=== PATIENT | female | born 1955 | race Caucasian/White ===

== ENCOUNTER 2016-06-23 07:23 | Outpatient (CLI) | payer MEDICAID ==
[~2016-06-23] VITALS: Ht 165.1 cm; Wt 95.5 kg
--- NOTE | ~2016-06-23 | HEMODYNAMI ---
PATIENT:NATHEN SERNA MEDICAL RECORD: [id number] : 57 LOCATION:[facility] ADMISSION DATE: 06/23/16 Generatedon:06/23/20169:05 Patient name: NATHEN SERNA Patient #: [id number] SSN: : 1955 Date of study: 06/23/2016 Page: Of Hemodynamic Procedure Report Patient Data Patient Demographics Procedure consent was obtained First Name: NATHEN Gender: Female Last Name: DAPHNE : 1955 Patient #: [id number] Age: 60 year(s) Race: Additional ID: [id number] Contact details [address]: [address] [place] [address] State: [place] City: [place] Zip code: [address] Past Medical History Allergies Allergen Reaction Date Comments Reported Other allergy 06/23/2016 BENADRYL Admission Admission Data Admission Date: 06/23/2016 Admission Time: 7:23 Height (in.): 65 BSA: 2.02 (m2) Height (cm.): 165.1 BMI: 34.95 (kg/m2) Weight (lbs.): 210 Weight (kg.): 95.25 Current Diagnosis Diagnosis Description Stable angina Lab Results Lab Result Date: 06/23/2016 Lab Result Time: 0:00 Biochemistry Name Units Result Min Max BUN mg/dl 13 --(--*-)-- 7 18 Creatinine mg/dl 0.8 --(-*--)-- 0.6 1.3 CBC Name Units Result Min Max Hemoglobin g/dl 12.4 *-(----)-- 13.5 17.5 Procedure Procedure Types Cath Procedure Diagnostic Procedure C LHC w/Coronaries Miscellaneous Procedures Moderate Sedation up to 15 minutes Procedure Description Procedure Date Procedure Date: 06/23/2016 Procedure Start Time: 8:58 Procedure End Time: 9:02 Procedure Staff Name Function Abebe Cagle MD Performing Physician Maco Davis RT Scrub April Berrios RN Nurse Sterling Quispe RT Monitor Procedure Data Cath Procedure Fluoroscopy Diagnostic fluoroscopy Total fluoroscopy Time: 0.5 time: 0.5 min min Diagnostic fluoroscopy Total fluoroscopy dose: 276 dose: 276 mGy mGy Contrast Material Contrast Material Type Amount (ml) Isovue 300 59 Entry Location Entry Primary Successful Side Size Upsize Upsize Entry Closure Bunn ccessful Closure Location (Fr) 1 (Fr) 2 (Fr) Remarks Device Remarks Radial Right 6 Fr Mechanical artery Short Compression Diagnostic catheters Device Type Used For End Catheter Placement Terumo 5Fr Dawn 110cm LV Angiography catheter Procedure Complications No complications Procedure Medications Medication Administration Route Dosage Oxygen NC 2 l/min Heparin Flush Bag added to field 2 bags (1000units/500ml NS) Lidocaine 2% added to field 20 Radial Cocktail added to field 1 syringe (Verapomil 2mg/Nitro 400mcg/Heparin 1500units) Versed I.V. 1 mg Fentanyl I.V. 50 mcg Versed I.V. 1 mg Fentanyl I.V. 50 mcg Radial Cocktail I.A. 1 syringe (Verapomil 2mg/Nitro 400mcg/Heparin 1500units) Versed I.V. 1 mg Fentanyl I.V. 50 mcg Versed I.V. 1 mg Fentanyl I.V. 50 mcg Hemodynamics Rest BSA: 2.02 (m2) HGB: 12.4 (g/dl) O2 Consumption: Estimated: 193.81 (ml/min) O2 Co nsumption indexed: Estimated:95.95 (ml/min/m) Heart Rate: 72 (bpm) Snapshots Pre Cath Intra NCS Post Cath Vital Signs Time Heart Resp SPO2 NIBP (mmHg) Rhythm Pain Sedation Rate (ipm) (%) Status Level (bpm) 8:31:26 78 16 98 153/80(123) NSR 0 (11) 10(A) , No pain 8:35:45 74 16 97 134/83(110) NSR 0 (11) 10(A) , No pain 8:40:01 71 22 97 136/86(105) NSR 0 (11) 10(A) , No pain 8:44:12 80 15 97 138/82(117) NSR 0 (11) 10(A) , No pain 8:48:28 79 16 97 113/76(103) NSR 0 (11) 10(A) , No pain 8:53:11 74 16 97 139/78(107) NSR 0 (11) 10(A) , No pain 8:57:23 78 14 96 126/79(104) NSR 0 (11) 10(A) , No pain 9:01:43 82 16 95 122/68(88) NSR 0 (11) 10(A) , No pain 9:04:11 86 16 95 119/72(96) NSR 0 (11) 10(A) , No pain Medications Time Medication Route Dose Verified Delivered Reason Notes E ffectiveness by by 8:30:23 Oxygen NC 2 l/min Abebe April Per Tsering Berrios RN physician 8:30:31 Heparin Flush added 2 bags Abebe Lomas used for Bag to Tsering Cagle MD procedure (1000units/500ml field NS) 8:30:38 Lidocaine 2% added 20ml Abebe Abebe used for to vial Tsering Cagle MD procedure field 8:30:44 Radial Cocktail added 1 Abebe Abebe used for (Verapomil to syringe Tsering Cagle MD procedure 2mg/Nitro field 400mcg/Heparin 1500units) 8:55:00 Versed I.V. 1 mg Abebe April for sedation Tsering Berrios RN 8:55:05 Fentanyl I.V. 50 mcg Abebe April for sedation Tsering Berrios RN 8:57:15 Versed I.V. 1 mg Abebe April for sedation Tsering Berrios RN 8:57:19 Fentanyl I.V. 50 mcg Abebe April for sedation Tsering Berrios RN 8:58:44 Radial Cocktail I.A. 1 Abebe Abebe for (Verapomil syringe Tsering Cagle MD vasodilation 2mg/Nitro 400mcg/Heparin 1500units) 8:59:01 Versed I.V. 1 mg Abebe April for sedation Tsering Berrios RN 8:59:08 Fentanyl I.V. 50 mcg Abebe April for sedation Tsering Berrios RN 9:01:01 Versed I.V. 1 mg Abebe April for sedation Tsering Berrios RN 9:01:05 Fentanyl I.V. 50 mcg Abebe April for sedation Tsering Berrios RN Procedure Log Time Note 8:22:10 ACC Patient presents with Stable Angina CCS Anginal Class 2--Slight limitation of ordinary activity. 8:22:13 Diagnostic Cath status Elective 8:22:57 April Berrios RN sent for patient. Start room use. 8:23:25 Time tracking: Regular hours 8:23:29 Plan of Care:Hemodynamics will remain stable., Cardiac rhythm will remain stable., Comfort level will be maintained., Respiratory function will remain adequate., Patient/ family verbilizes understanding of procedure., Procedure tolerated without complication., Recovers from procedure without complications.. 8:23:47 Patient received from Pre/Post Procedure Room to [facility] 2 Alert and oriented. Tansferred to table in Supine position. 8:23:48 Warm blankets applied, and yanique hugger turned on for patient comfort. 8:23:48 Correct patient and procedure confirmed by team. 8:23:49 Signed procedure consent form obtained from patient. 8:23:50 ECG and BP/O2 sat monitors applied to patient. 8:30:14 Vital chart was started 8:30:23 Oxygen 2 l/min NC was administered by April Berrios RN; Per physician; 8:30:31 Heparin Flush Bag (1000units/500ml NS) 2 bags added to field was administered by Abebe Cagle MD; used for procedure; 8:30:38 Lidocaine 2% 20ml vial added to field was administered by Abebe Cagle MD; used for procedure; 8:30:44 Radial Cocktail (Verapomil 2mg/Nitro 400mcg/Heparin 1500units) 1 syringe added to field was administered by Abebe Cagle MD; used for procedure; 8:42:05 Baseline sample Acquired. 8:42:08 Rhythm: sinus rhythm 8:42:09 Full Disclosure recording started 8:45:03 H&P Date Dictated: 06/15/2016 Within 30 days and on chart., H&P Addendum completed by physician on day of procedure. (MUST COMPLETE FOR ALL OUTPATIENTS). 8:45:04 Pre-procedure instructions explained to patient. 8:45:04 Pre-op teaching completed and patient verbalized understanding. 8:45:06 Family in waiting room. 8:45:39 Patient NPO since Midnight. 8:46:00 Patient allergic to Other allergyBENADRYL 8:46:02 Is the patient allergic to Iodine/contrast media? No. 8:46:44 Is patient on blood thinner?No 8:46:48 Patient diabetic? Yes. 8:46:50 If diabetic: On Metformin? Yes 8:46:52 If on Metformin: Last Dose? 06/21/2016 8:46:53 ----Pre-sedation anethsthesia assessment.---- 8:46:55 Previous problem with sedation/anesthesia? No ? 8:46:56 Snore? Yes 8:46:57 Sleep apnea? No 8:46:59 Deviated septum? No 8:47:00 Opens mouth fully? Yes 8:47:01 Sticks out tongue? Yes 8:47:06 Dentures? No ? 8:47:07 Airway obstruction? No ? 8:47:12 Pre procedure: right dorsailis pedis pulse 1+ Palpable, but thready & weak; easily obliterated 8:50:07 Modified Pipo's test Ulnar < 7 seconds 8:50:11 Patient pain scale 0/10 ?. 8:50:17 IV patent on arrival in left hand with 0.9% NaCl at 10ml/hr. 8:51:51 Lab Result : Creatinine 0.8 mg/dl 8:51:51 Lab Result : BUN 13 mg/dl 8:51:51 Lab Result : Hemoglobin 12.4 g/dl 8:51:54 Lab results completed and on chart. 8:51:57 Right Radial & Right Groin area was prepped with chlora-prep and draped in sterile fashion 8:51:58 Alarms reviewed by R. N. 8:51:58 Sharps counted by scrub and verified by R.N. 8:53:09 Patient Height : 165.1 cm 8:53:13 Patient Weight : 95.25 kg 8:53:16 Current Diagnosis : Stable angina 8:53:25 Use device set Radial Dx 8:53:26 Acist Syringe opened to sterile field. 8:53:26 Medline Cath Pack opened to sterile field. 8:53:27 Bag Decanter opened to sterile field. 8:53:27 Terumo 6Fr Slender Glidesheath opened to sterile field. 8:53:28 St Byron 260cm J .035 wire opened to sterile field. 8:53:28 Acist Hand Control opened to sterile field. 8:53:28 Acist Manifold opened to sterile field. 8:53:29 Tegaderm 4 x 4 opened to sterile field. 8:53:29 MBrace Wrist Support opened to sterile field. 8:54:50 --------ALL STOP TIME OUT------ 8:54:51 Final Timeout: patient, procedure, and site verified with staff and physician. All members of the team are in agreement. 8:54:52 Right Radial & Right Groin site verified by team. 8:54:55 Physical assessment completed. ASA score P 2 - A patient with mild systemic disease as per Abebe Cagle MD. 8:54:58 Sedation plan: IV Moderate Sedation Versed, Fentanyl 8:55:00 Versed 1 mg I.V. was administered by April Berrios RN; for sedation; 8:55:05 Fentanyl 50 mcg I.V. was administered by April Berrios RN; for sedation; 8:56:42 Zero performed for pressure channel P1 8:57:15 Versed 1 mg I.V. was administered by April Berrios RN; for sedation; 8:57:19 Fentanyl 50 mcg I.V. was administered by April Berrios RN; for sedation; 8:57:59 Procedure started. 8:58:09 Local anesthetic to right radial artery with Lidocaine 2% by Abebe Cagle MD.INITIAL ACCESS ONLY 8:58:19 A 6 Fr Short sheath was inserted into the Right Radial artery 8:58:44 Radial Cocktail (Verapomil 2mg/Nitro 400mcg/Heparin 1500units) 1 syringe I.A. was administered by Abebe Cagle MD; for vasodilation; 8:58:47 A [employer] 5Fr Dawn 110cm catheter was advanced over the wire and used for LV Angiography. 8:58:50 LV angiography performed. 8:58:51 LV gram done using SWANN 8:58:57 Injector settings: Ml/sec: 7, Volume: 15, 8:59:01 Versed 1 mg I.V. was administered by April Berrios RN; for sedation; 8:59:08 Fentanyl 50 mcg I.V. was administered by April Berrios RN; for sedation; 8:59:48 EF : 50 % 8:59:50 LCA angiography performed. 9:00:54 RCA angiography performed. 9:00:55 Catheter removed. 9:01:01 Versed 1 mg I.V. was administered by April Berrios RN; for sedation; 9:01:01 Contrast amount:Isovue 300 59ml. 9:01:05 Fentanyl 50 mcg I.V. was administered by April Berrios RN; for sedation; 9:01:07 Sheath removed intact; hemostasis achieved with Mechanical Compression to the Right Radial artery. 9:01:16 Terumo TR Band Standard opened to sterile field. 9:01:19 Procedure ended.(Physican Out) 9:01:30 Fluoroscopy time 00.50 minutes. 9::35 Fluoroscopy dose: 276 mGy 9::35 Flurop Dose total: 276 9::36 Sharps counted by scrub and verified by R.N. 9:01:37 TR band inflated with 10cc of air. 9:01:38 Insertion/operative site no bleeding no hematoma. 9:01:44 Post right radial artery:stable 9:01:45 Post Procedure Pulses reassessed and unchanged 9:01:48 Post procedure rhythm: sinus rhythm 9:01:50 Post procedure instruction explained to patient.Patient verbalizes understanding. 9:01:56 Procedure type changed to Cath procedure, Diagnostic procedure, LHC, LHC w/Coronaries, Miscellaneous Procedures, Moderate Sedation up to 15 minutes 9:02:00 Procedure and supply charges have been captured, reviewed, submitted and are correct. 9:02:12 Procedure Complication : No complications 9:02:14 Vital chart was stopped 9:02:14 See physician's report for complete and final results. 9:02:16 Report given to Pre/Post Procedure Room. 9:02:20 Patient transfered to Pre/Post Procedure Room with Stretcher. 9:02:22 Procedure ended. 9:02:22 Full Disclosure recording stopped 9:02:29 End room use (Document Last) Device Usage Item Name Manufacture Quantity Catalog Hospital Part Current Minimal Lot# / Number Charge Number Stock Stock Serial# Code Acist Acist 1 88864 [id number] 015564 641970 20 Syringe [employer] Medline Cardinal 1 [id number] [id number] 54832 [id number] 5 Cath Pack Health Bag Microtek 1 808917 96358 051661 5 Decanter [employer] Inc. Terumo 6Fr Terumo 1 [id number] 000860 193455 1656[address] St Byron 1 977200 893860 760380 501834 30 260cm J .035 wire Acist Hand Acist 1 95217 378820 899475 787129 5 Control [employer] Inc Acist Acist 1 16009 103236 984239 397499 5 Manifold Medical [employer] Inc Tegaderm 4 3M 1 1626W 661679 778164 820756 5 x 4 MBrace Advanced 1 140-0250-00 495241 83409 653958 5 Wrist Vascular Support Dynamics Terumo 5Fr Terumo 1 81-8051 617264 387984 112346 5 Dawn 110cm catheter Terumo TR Terumo 1 [id number] 173874 577298 640836 40 Band Standard Signature Audit [place] Stage Time Signature Unsigned Intra-Procedure 06/23/2016 Sterling Quispe 9:05:28 AM RT(R) Signatures Monitor : Sterling Quispe RT Signature : Date : Time : [place] [id number] [place] [address]
[2016-06-23] MEDS ORDERED: JANUMET 50-1,001 TAB PO (07:52)
[2016-06-23] MEDS ORDERED: ZESTRIL20 MG PO (07:52)
[2016-06-23] MEDS ORDERED: ZYLOPRIM300 MG PO (07:53)
[2016-06-23] MEDS ORDERED: NORVASC5 MG PO (07:53)
[2016-06-23] MEDS ORDERED: GLIMEPIRIDE2 MG PO (07:54)
[2016-06-23] MEDS ORDERED: PRAVACHOL20 MG PO (07:54)
[2016-06-23] MEDS ORDERED: METOPROLOL TART25 MG PO (07:54)
[2016-06-23] MEDS ORDERED: CALCIUM 500 + D1 TAB PO (07:55)
[2016-06-23] MEDS ORDERED: BAYER CHEWABLE81 MG PO (07:55)
[2016-06-23 08:03] VITALS: BP 142/88; Ht 165.1 cm; Wt 95.5 kg
[2016-06-23 08:16] LABS: BASOPHILS 0.7 % (0.0-2.0); HEMATOCRIT 38.4 % (36.0-48.0); HEMOGLOBIN 12.4 g/dL (12-16); IMMATURE GRANULOCYTES 0.5 % (0-5); LYMPHOCYTES 31.1 % (15-50); MCH 29.2 pg (26.0-34.0); MCHC 32.3 g/dL (31.0-37.0); MCV 90.4 fL (80.0-100.0); MEAN PLATELET VOLUME 10.2 fL (7.4-10.4); MONOCYTES 6.7 % (2-11); PLATELET COUNT 297 10x3/uL (130-400); RBC 4.25 10x6/uL (4.00-5.40); RDW 13.4 % (11.5-14.5); WBC 8.6 10x3/uL (4.8-10.8)
[2016-06-23 08:27] LABS: CALC OSMOLALITY 283 mosm/kg (275-300); CALCIUM 10.6 mg/dL (8.5-10.1); CARBON DIOXIDE 25.8 mmol/L (21.0-32.0); CHLORIDE - SERUM 104 mmol/L (98-107); CREATININE - SERUM 0.8 mg/dL (0.6-1.3); GLUCOSE 197 mg/dL (74-106); POTASSIUM - SERUM 4.6 mmol/L (3.5-5.1); SODIUM 140 mmol/L (136-145); UREA NITROGEN 13 mg/dL (7-18); eGFR NON AFRICAN AMERICAN 78 mL/min (90-120)
--- NOTE | 2016-06-23 09:55 | NUR ---
0935 SITTING UP TALKING WITH DAUGHTER AT BEDSIDE. ALL VITALS WNL. R WRIST TR BAND C/D/I WITH NO HEMATOMA OR BLEEDING. DR. HERNANDEZ AT BEDSIDE TO DISCUSS FINDINGS.
--- NOTE | 2016-06-23 10:26 | NUR ---
1010 SITTING UP IN BED DRINKING SODA. ALL VITALS WNL. R WRIST TR BAND C/D/I WIT NO HEMATOMA OR BLEEDING. DAUGHTER AT BEDSIDE.
--- NOTE | 2016-06-23 11:00 | NUR ---
4CC AIR REMOVED FROM R WRIST TR BAND. SITTING UP EATING TURKEY TRAY.
--- NOTE | 2016-06-23 11:22 | NUR ---
2CC AIR REMOVED FROM R WRIST TR BAND. PIV REMOVED FROM LEFT HAND WITH BANDAID APPLIED. UP TO BEDSIDE TO DRESS WITH ASSIST FROM DAUGHTER.
--- NOTE | 2016-06-23 11:40 | NUR ---
TR BAND REMOVED, COTTON BALL AND TEGADERM APPLIED. BRACE REMAINS INTACT. D/C INSTRUCTIONS DISCUSSED WITH PATIENT AND DAUGHTER AT BEDSIDE. WHEELED OUT VIA WHEELCHAIR BY CATH TEAM.
--- NOTE | 2016-06-24 08:41 | OP ---
PATIENT NAME: NATHEN SERNA MEDICAL RECORD: [id number] :57 LOCATION:D.CAT ADMISSION DATE: SURGEON: ROCIO HERNANDEZ MD DATE OF OPERATION: 06/23/2016 PROCEDURES: 1. Left heart catheterization. 2. Selective coronary angiography. 3. Left ventriculogram. INDICATION: Chest pain compatible with angina. DESCRIPTION OF THE PROCEDURE: After informed consent was obtained and after detailed explanation of risks, benefits as well as alternative therapies, the patient elected to proceed with angiogram and heart catheterization. The right radial area was prepped and draped in normal sterile fashion. The right radial artery was cannulated via modified Seldinger technique with placement of 5-Macanese sheath. All catheters exchanged through this sheath. FINDINGS: Left ventriculogram was performed in standard 30-degree SWANN view, reveals good cardiac wall motion throughout all segments. Overall ejection fraction is 60%. SELECTIVE CORONARY ANGIOGRAPHY: 1. Left main showed no significant angiographic disease. 2. Left anterior descending has moderate irregularities, but no flow-limiting stenosis. 3. Left circumflex has no significant disease. 4. Right coronary artery has moderate irregularities, but no flow-limiting stenosis. OVERALL IMPRESSION: Minimal coronary artery disease is present. No flow-limiting stenosis. Chest pain is noncardiac in etiology. Continue medical management of the coronary artery disease and cardiac risk factors. TRANSINT:[id number] Voice Confirmation ID: [id number] DOCUMENT ID: [id number] ROCIO HERNANDEZ MD at 0841 CC: [id number] DICTATION DATE: 06/23/16 0903 SHANK INSPECTOR: 06/23/16 1339 [facility] CLI 06/23/[address] [id number]
== END 2016-06-23 11:41 | disposition home or self-care (01) ==
LOC: D.CATH 07:23
PROVIDERS: Internal Medicine Interventional Cardiology
DX: R07.89 Other chest pain (principal)

== ENCOUNTER → 2016-08-03 19:04 | Outpatient (CLI) | payer OTHER ==
[2016-06-23 08:03] VITALS: BMI 35.0
[~2016-08-03 19:04] MED LIST: BAYER CHEWABLE81 MG PO; CALCIUM 500 + D1 TAB PO; GLIMEPIRIDE2 MG PO; JANUMET 50-1,001 TAB PO; METOPROLOL TART25 MG PO; NORVASC5 MG PO; PRAVACHOL20 MG PO; ZESTRIL20 MG PO; ZYLOPRIM300 MG PO
== END | disposition home or self-care (01) ==
LOC: D.MAMMO 07-14 09:00
DX: Z12.31 Encounter for screening mammogram for malignant neoplasm of breast (principal)

== ENCOUNTER → 2017-08-04 16:42 | Outpatient (CLI) | payer MEDICAID ==
[2016-06-23 08:03] VITALS: BMI 35.0
== END | disposition home or self-care (01) ==
LOC: D.MAMMO 10:15
DX: Z12.31 Encounter for screening mammogram for malignant neoplasm of breast (principal)